=== PATIENT | female | born 1985 | race Caucasian/White ===

== ENCOUNTER 2019-07-22 03:58 | Emergency (ER) | payer BC ==
[2019-07-22 04:05] VITALS: RESP 18
[2019-07-22] MEDS ORDERED: SODIUM CHLORIDE 0.9% 1,000 ML IV STA (04:35)
[2019-07-22] MEDS ORDERED: DIAZEPAM 5 MG/ML 2 ML INJ IVP STA (04:35)
--- NOTE | 2019-07-22 04:42 | ED ---
Dizziness HPI - General Chief Complaint: Dizziness Stated Complaint: Dizziness Time Seen by Provider: 07/22/19 04:00 Source: patient Limitations: no limitations - History of Present Illness Initial Comments: The patient is a 34-year-old female presents the emergency department with reported vertiginous symptoms. She states over the past several days that she has had positional vertigo which has been waxing and waning. She recently had an upper respiratory infection. States that her nasal congestion has been improving. She has been taking Claritin. The vertigo is a recent development. Sates that it is worse and she sits or stands. No history of similar in the past. Denies any blunt head trauma. No headaches or visual changes. Denies any unilateral numbness or weakness. No speech difficulties or confusion. Denies any chest pain or shortness of breath. No blunt head trauma. Denies gradual onset. No family history of polycystic kidney disease or aneurysms. Also admits to presyncope. She denies any shortness of breath. No abdominal pain or changes in her bowel habits. States that she has been under an extreme amount of stress and feels very anxious. Denies concern for . There are no alleviating, precipitating or modifying factors - Related Data Home Medications Medication Instructions Recorded Confirmed Ibuprofen [Motrin Ib] 400 mg PO TID 11/23/18 07/22/19 Loratadine [Claritin] 10 mg PO DAILY 11/23/18 07/22/19 Multivitamin/Iron/Folic Acid 1 tab PO DAILY 11/23/18 07/22/19 [Centrum Adults Tablet] Previous Rx's Medication Instructions Recorded Meclizine [Antivert] 25 mg PO TID PRN #15 tab 07/22/19 Allergies Allergy/AdvReac Type Severity Reaction Status Date / Time No Known Allergies Allergy Verified 07/22/19 04:05 Review of Systems ROS Statement: Those systems with pertinent positive or pertinent negative responses have been documented in the HPI. ROS Other: All systems not noted in ROS Statement are negative. Past Medical History Past Medical History: No Reported History History of Any Multi-Drug Resistant Organisms: None Reported Past Surgical History: Section Past Psychological History: No Psychological Hx Reported Smoking Status: Never smoker Past Alcohol Use History: None Reported Past Drug Use History: None Reported General Exam Limitations: no limitations General appearance: alert, in no apparent distress Head exam: Present: atraumatic, normocephalic, normal inspection Eye exam: Present: normal appearance, PERRL, EOMI. Absent: scleral icterus, conjunctival injection, periorbital swelling ENT exam: Present: normal exam, mucous membranes moist Neck exam: Present: normal inspection. Absent: tenderness, meningismus, lymphadenopathy Respiratory exam: Present: normal lung sounds bilaterally. Absent: respiratory distress, wheezes, rales, rhonchi, stridor Cardiovascular Exam: Present: normal rhythm, tachycardia, normal heart sounds. Absent: systolic murmur, diastolic murmur, rubs, gallop, clicks GI/Abdominal exam: Present: soft, normal bowel sounds. Absent: distended, tenderness, guarding, rebound, rigid Extremities exam: Present: normal inspection, full ROM, normal capillary refill. Absent: tenderness, pedal edema, joint swelling, calf tenderness Back exam: Present: normal inspection Neurological exam: Present: alert, oriented X3, CN II-XII intact, other (negative pronator drift. no truncal ataxia. finger to nose and heel to andujar is symmetric bilaterally. ) Psychiatric exam: Present: normal affect, normal mood Skin exam: Present: warm, dry, intact, normal color. Absent: rash Course Vital Signs 07/22/19 07/22/19 07/22/19 04:00 04:37 06:09 Temperature 99.0 F Pulse Rate 133 H 115 H Pulse Rate [ 135 H Sitting] Pulse Rate [ 156 H Standing] Pulse Rate [ 129 H Supine] Respiratory 18 18 Rate Blood Pressure 147/106 126/82 Blood Pressure 145/92 [Sitting] Blood Pressure 128/88 [Standing] Blood Pressure 147/86 [Supine] O2 Sat by Pulse 98 98 Oximetry 07/22/19 07:23 Temperature 98 F Pulse Rate 94 Pulse Rate [ Sitting] Pulse Rate [ Standing] Pulse Rate [ Supine] Respiratory 18 Rate Blood Pressure 125/80 Blood Pressure [Sitting] Blood Pressure [Standing] Blood Pressure [Supine] O2 Sat by Pulse 98 Oximetry EKG Findings - EKG Comments: EKG Findings:: EKG demonstrates a sinus tachycardia with a ventricular rate of 131. PA interval 132. QRS E4. QTC of 448. No acute ST segment ablation depressions concerning for ischemic changes. No signs of Ktdpc-Mxjuehera-Lwhnl or Brugada syndrome Medical Decision Making - Medical Decision Making Upon arrival patient was placed into room 6. A thorough history and physical exam was performed. I discussed diagnosis, differential and treatment options. Laboratory studies were performed and were unremarkable. Orthostatics were negative. CT of the brain demonstrated no acute findings. The patient is markedly tachycardic. I did recommend treatment with Valium if this would help her anxiety and dizziness. Patient is refusing this medication. I did discuss treating her with meclizine for which the patient was extremely apprehensive stating that she doesn't like to take any medication however she finally agreed. I did add on a d-dimer because the patient's tachycardia. It is negative. UA shows rare bacteria. The patient is a symptomatically and therefore I will not treat it. I discuss the diagnosis, differential and treatment options. Reevaluation after the meclizine demonstrated that she had marked improvement in her symptoms. She feels comfortable being discharged home at this time. I did provide the patient with a prescription for meclizine. I instructed her that if she has new or worsening symptoms that she needs to return to the emergency department for neurology evaluation and MRI. The patient understood this. She was given written and verbal discharge instructions and discharged home in stable condition - Lab Data Result diagrams: 07/22/19 04:42 07/22/19 04:42 Lab Results 07/22/19 07/22/19 07/22/19 Range/Units 04:42 04:42 04:42 WBC 8.7 (3.8-10.6) k/uL RBC 5.28 (3.80-5.40) m/uL Hgb 15.9 (11.4-16.0) gm/dL Hct 48.1 H (34.0-46.0) % MCV 91.2 (80.0-100.0) fL MCH 30.1 (25.0-35.0) pg MCHC 33.0 (31.0-37.0) g/dL RDW 12.5 (11.5-15.5) % Plt Count 342 (150-450) k/uL Neutrophils % 77 % Lymphocytes % 15 % Monocytes % 5 % Eosinophils % 1 % Basophils % 0 % Neutrophils # 6.8 (1.3-7.7) k/uL Lymphocytes # 1.3 (1.0-4.8) k/uL Monocytes # 0.4 (0-1.0) k/uL Eosinophils # 0.1 (0-0.7) k/uL Basophils # 0.0 (0-0.2) k/uL D-Dimer (<0.60) mg/L FEU Sodium (137-145) mmol/L Potassium (3.5-5.1) mmol/L Chloride (98-107) mmol/L Carbon Dioxide (22-30) mmol/L Anion Gap mmol/L BUN (7-17) mg/dL Creatinine (0.52-1.04) mg/dL Est GFR (CKD-EPI)AfAm (>60 ml/min/1.73 sqM) Est GFR (CKD-EPI)NonAf (>60 ml/min/1.73 sqM) Glucose (74-99) mg/dL Calcium (8.4-10.2) mg/dL Total Bilirubin (0.2-1.3) mg/dL AST (14-36) U/L ALT (4-34) U/L Alkaline Phosphatase (38-126) U/L Troponin I (0.000-0.034) ng/mL Total Protein (6.3-8.2) g/dL Albumin (3.5-5.0) g/dL Urine Color Colorless Urine Appearance Cloudy H (Clear) Urine pH 6.5 (5.0-8.0) Ur Specific [place] 1.002 (1.001-1.035) Urine Protein Negative (Negative) Urine Glucose (UA) Negative (Negative) Urine Ketones Negative (Negative) Urine Blood Negative (Negative) Urine Nitrite Negative (Negative) Urine Bilirubin Negative (Negative) Urine Urobilinogen <2.0 (<2.0) mg/dL Ur Leukocyte Esterase Small H (Negative) Urine RBC <1 (0-5) /hpf Urine WBC 3 (0-5) /hpf Ur Squamous Epith Cells 4 (0-4) /hpf Urine Bacteria Rare H (None) /hpf Urine HCG, Qual Not Detected (Not Detectd) 07/22/19 07/22/19 07/22/19 Range/Units 04:42 04:42 04:47 WBC (3.8-10.6) k/uL RBC (3.80-5.40) m/uL Hgb (11.4-16.0) gm/dL Hct (34.0-46.0) % MCV (80.0-100.0) fL MCH (25.0-35.0) pg MCHC (31.0-37.0) g/dL RDW (11.5-15.5) % Plt Count (150-450) k/uL Neutrophils % % Lymphocytes % % Monocytes % % Eosinophils % % Basophils % % Neutrophils # (1.3-7.7) k/uL Lymphocytes # (1.0-4.8) k/uL Monocytes # (0-1.0) k/uL Eosinophils # (0-0.7) k/uL Basophils # (0-0.2) k/uL D-Dimer 0.43 (<0.60) mg/L FEU Sodium 139 (137-145) mmol/L Potassium 4.1 (3.5-5.1) mmol/L Chloride 105 (98-107) mmol/L Carbon Dioxide 24 (22-30) mmol/L Anion Gap 10 mmol/L BUN 13 (7-17) mg/dL Creatinine 0.76 (0.52-1.04) mg/dL Est GFR (CKD-EPI)AfAm >90 (>60 ml/min/1.73 sqM) Est GFR (CKD-EPI)NonAf >90 (>60 ml/min/1.73 sqM) Glucose 158 H (74-99) mg/dL Calcium 9.8 (8.4-10.2) mg/dL Total Bilirubin 0.2 (0.2-1.3) mg/dL AST 23 (14-36) U/L ALT 19 (4-34) U/L Alkaline Phosphatase 96 (38-126) U/L Troponin I <0.012 (0.000-0.034) ng/mL Total Protein 7.6 (6.3-8.2) g/dL Albumin 4.3 (3.5-5.0) g/dL Urine Color Urine Appearance (Clear) Urine pH (5.0-8.0) Ur Specific [place] (1.001-1.035) Urine Protein (Negative) Urine Glucose (UA) (Negative) Urine Ketones (Negative) Urine Blood (Negative) Urine Nitrite (Negative) Urine Bilirubin (Negative) Urine Urobilinogen (<2.0) mg/dL Ur Leukocyte Esterase (Negative) Urine RBC (0-5) /hpf Urine WBC (0-5) /hpf Ur Squamous Epith Cells (0-4) /hpf Urine Bacteria (None) /hpf Urine HCG, Qual (Not Detectd) Disposition Clinical Impression: Positional vertigo Disposition: HOME SELF-CARE Condition: Stable Instructions (If sedation given, give patient instructions): Dizziness (ED) Additional Instructions: Please follow-up with your primary care doctor in 2-4 days. Return to emergency room for any new or worsening symptoms Prescriptions: Meclizine [Antivert] 25 mg PO TID PRN #15 tab PRN Reason: Vertigo Is patient prescribed a controlled substance at d/c from ED?: No Referrals: None,Stated [Primary Care Provider] - 1-2 days Time of Disposition: 07:09
[2019-07-22 05:01] LABS: Basophils % (A) 0 %; Eosinophils # (A) 0.1 k/uL (0-0.7); Eosinophils % (A) 1 %; HCT 48.1 % (34.0-46.0); HGB 15.9 gm/dL (11.4-16.0); Lymphocytes # (A) 1.3 k/uL (1.0-4.8); Lymphocytes % (A) 15 %; MCH 30.1 pg (25.0-35.0); MCV 91.2 fL (80.0-100.0); Mean Platelet Volume 6.7; Monocytes # (A) 0.4 k/uL (0-1.0); Monocytes % (A) 5 %; Neutrophils # (A) 6.8 k/uL (1.3-7.7); Neutrophils % (A) 77 %; Platelet Count 342 k/uL (150-450); RBC 5.28 m/uL (3.80-5.40); RDW 12.5 % (11.5-15.5); WBC 8.7 k/uL (3.8-10.6)
[2019-07-22 05:06] LABS: Appearance,Urine Cloudy (Clear); Bacteria,Urine Rare /hpf; Bilirubin,Urine Negative (Negative); Blood,Urine Negative (Negative); Color,Urine Colorless; Glucose,Urine (UA) Negative (Negative); Ketones,Urine Negative (Negative); Leukocyte Esterase,Urine Small (Negative); Nitrite,Urine Negative (Negative); PH, Urine 6.5 (5.0-8.0); Protein,Urine Negative (Negative); RBC,Urine <1 /hpf (0-5); Specific Gravity,Urine 1.002 (1.001-1.035); Squamous Epithelial Cell,Urine 4 /hpf (0-4); Urobilinogen,Urine <2.0 mg/dL (<2.0); WBC,Urine 3 /hpf (0-5)
--- NOTE | 2019-07-22 05:06 | XR ---
EXAMINATION TYPE: XR chest 2V DATE OF EXAM: 07/22/2019 COMPARISON: 11/23/2018 HISTORY: Sore throat TECHNIQUE: FINDINGS: Heart and mediastinum are normal. Lungs are clear. Diaphragm is normal. Bony thorax is inta ct. There are chest leads. IMPRESSION: Normal chest. No change.
[2019-07-22 05:08] LABS: ALT 19 U/L (4-34); AST 23 U/L (14-36); African American GFR (CKD) >90 (>60 ml/min/1.73 sqM); Albumin 4.3 g/dL (3.5-5.0); Alkaline Phosphatase 96 U/L (38-126); Anion Gap 10 mmol/L; Blood Urea Nitrogen 13 mg/dL (7-17); Calcium 9.8 mg/dL (8.4-10.2); Carbon Dioxide 24 mmol/L (22-30); Chloride 105 mmol/L (98-107); Glucose 158 mg/dL (74-99); Non-African American GFR(CKD) >90 (>60 ml/min/1.73 sqM); Potassium 4.1 mmol/L (3.5-5.1); Sodium 139 mmol/L (137-145); Total Bilirubin 0.2 mg/dL (0.2-1.3); Total Protein 7.6 g/dL (6.3-8.2)
--- NOTE | 2019-07-22 05:40 | CT ---
EXAMINATION TYPE: CT brain wo con DATE OF EXAM: 07/22/2019 COMPARISON: None HISTORY: Dizziness CT DLP: 1127.4 mGycm Automated exposure control for dose reduction was used. The ventricles have normal size. There is no mass effect nor midline shift. There is no sign of intra cranial hemorrhage. Calvarium is intact. There is no evidence of cerebral edema. IMPRESSION: Negative CT scan of the brain.
[2019-07-22] MEDS ORDERED: MECLIZINE 12.5 MG TAB PO STA (05:51)
[2019-07-22 07:26] VITALS: BP 125/80; PULSE 94; TEMP 98
== END 2019-07-22 07:23 | disposition home or self-care (01) ==
LOC: EC 03:58
DX: R42 Dizziness and giddiness (principal); R00.0 Tachycardia, unspecified; F41.9 Anxiety disorder, unspecified; Z53.20 Procedure and treatment not carried out because of patient's decision for unspecified reasons
CPT/HCPCS: 36415; 70450; 71046; 80053; 81001; 81025; 84484; 85025; 85379; 93005; 96360; 96361; 99285

== ENCOUNTER 2024-06-06 07:51 | Inpatient (IN) | payer BC, OTHER ==
[2024-05-27 10:18] VITALS: BMI 39.6
[2024-06-06] MEDS ORDERED: OXYTOCIN 10 UNIT/ML 1 ML VIAL IM PRN (08:23)
[2024-06-06] MEDS ORDERED: miSOPROStoL 200 MCG TAB PO PRN (08:23)
[2024-06-06] MEDS ORDERED: TRANEXAMIC 1,000 MG/100ML-NACL 1,000 MG in EMPTY BAG 1 BAG IV PRN (08:23)
[2024-06-06] MEDS ORDERED: CARBOPROST TROMETHAMINE 250 MCG/ML 1 ML AMP IM PRN (08:23)
[2024-06-06] MEDS ORDERED: METHYLERGONOVINE 0.2 MG/ML 1 ML AMP IM PRN (08:23)
[2024-06-06] MEDS ORDERED: OXYTOCIN 30 UNITS/500 ML NS 30 UNIT in SALINE 1 500ML.BAG IV SCH ×2 (08:30→11:00)
[2024-06-06] MEDS: CITRIC ACID-SODIUM CITRATE 15 ML CUP PO ONE (08:39)
[2024-06-06] MEDS: LACTATED RINGERS 1,000 ML IV SCH ×2 (08:39→14:21)
[2024-06-06 08:46] LABS: Anisocytosis Slight; Basophils % (A) 0 %; Eosinophils # (A) 0.1 k/uL (0-0.7); Eosinophils % (A) 1 %; HCT 31.9 % (34.0-46.0); HGB 10.1 gm/dL (11.4-16.0); Hypochromasia Marked; Lymphocytes # (A) 1.2 k/uL (1.0-4.8); Lymphocytes % (A) 15 %; MCH 22.5 pg (25.0-35.0); MCHC 31.7 g/dL (31.0-37.0); MCV 71.2 fL (80.0-100.0); Mean Platelet Volume 7.4; Microcytosis Marked; Monocytes # (A) 0.5 k/uL (0-1.0); Monocytes % (A) 6 %; Neutrophils # (A) 6.1 k/uL (1.3-7.7); Neutrophils % (A) 76 %; Platelet Count 330 k/uL (150-450); Poikilocytosis Slight; RBC 4.49 m/uL (3.80-5.40); RDW 18.2 % (11.5-15.5)
[2024-06-06] MEDS ORDERED: fentaNYL (PF) 50 MCG/ML 2 ML AMP ONE (10:06)
[2024-06-06] MEDS ORDERED: MORPHINE SULFATE (PF) 0.3 MG/0.3 ML SYR ONE (10:06)
[2024-06-06] MEDS ORDERED: NALBUPHINE (ANES) 10 MG/ML - 1 ML AMP ONE (10:06)
[2024-06-06] MEDS ORDERED: KETOROLAC 30 MG/ML 1 ML VIAL ONE (10:06)
[2024-06-06] MEDS ORDERED: ONDANSETRON 4 MG/2 ML VIAL ONE (10:06)
[2024-06-06] MEDS ORDERED: diphenhydrAMINE 25 MG CAP PO PRN (10:55)
[2024-06-06] MEDS ORDERED: METOCLOPRAMIDE 5 MG/ML 2 ML VIAL IVP PRN (10:55)
[2024-06-06] MEDS ORDERED: ONDANSETRON 4 MG/2 ML VIAL IVP PRN (10:55)
[2024-06-06] MEDS ORDERED: ZOLPIDEM 5 MG TAB PO PRN (10:55)
[2024-06-06] MEDS ORDERED: NALOXONE 0.4 MG/ML 1 ML VIAL IV PRN (10:55)
[2024-06-06] MEDS ORDERED: LANOLIN CREAM 1 GM TUBE TOPICAL PRN (10:55)
[2024-06-06] MEDS ORDERED: diphenhydrAMINE 50 MG CAP PO PRN (10:55)
[2024-06-06] MEDS ORDERED: diphenhydrAMINE 50 MG/ML 1 ML VIAL IVP PRN ×2 (10:55)
[2024-06-06] MEDS ORDERED: SIMETHICONE 80 MG CHEWABLE PO PRN (10:55)
--- NOTE | 2024-06-06 11:20 | P.HPOB ---
History of Present Illness H&P Date: 06/06/24 Chief Complaint: repeat low transverse 39-year-old G4, P3 presents at 39 weeks and 3 days for repeat low-transverse C- section. She has had some polyhydramnios with negative TORCH titers in this . Review of Systems All systems: negative Constitutional: Denies chills, Denies fever Eyes: denies blurred vision, denies pain Ears, nose, mouth and throat: Denies headache, Denies sore throat Cardiovascular: Denies chest pain, Denies shortness of breath Respiratory: Denies cough Gastrointestinal: Denies abdominal pain, Denies diarrhea, Denies nausea, Denies vomiting Genitourinary: Denies dysuria, Denies hematuria Musculoskeletal: Denies myalgias Integumentary: Denies pruritus, Denies rash Neurological: Denies numbness, Denies weakness Psychiatric: Denies anxiety, Denies depression Endocrine: Denies fatigue, Denies weight change Past Medical History Past Medical History: GERD/Reflux Additional Past Medical History / Comment(s): 2 Vaginal deliveries and 1 C- section History of Any Multi-Drug Resistant Organisms: None Reported Past Surgical History: Section Additional Past Surgical History / Comment(s): x1 Past Anesthesia/Blood Transfusion Reactions: No Reported Reaction Additional Past Anesthesia/Blood Transfusion Reaction / Comment(s): Has never had anesthesia only spinal for previous . No hx of blood transfusion to date. Past Psychological History: No Psychological Hx Reported Smoking Status: Never smoker Past Alcohol Use History: None Reported Past Drug Use History: None Reported - Past Family History Mother Family Medical History: Cancer Additional Family Medical History / Comment(s): breast cancer Medications and Allergies Home Medications Medication Instructions Recorded Confirmed Type Aspirin EC [Ecotrin Low Dose] 81 mg PO DAILY 05/27/24 06/06/24 History Vitamin(Unknown Dose) 1 dose PO QAM 05/27/24 06/06/24 History Allergies Allergy/AdvReac Type Severity Reaction Status Date / Time No Known Allergies Allergy Verified 06/06/24 08:22 Exam Osteopathic Statement: *. No significant issues noted on an osteopathic structural exam other than those noted in the History and Physical/Consult. Vital Signs Temp Pulse Resp BP Pulse Ox 06/06/24 08:21 98.5 F 99 18 135/76 99 Intake and Output 06/05/24 06/06/24 06/06/24 22:59 06:59 14:59 Other: Weight 98.43 kg Heart: Regular rate and rhythm Lungs: Clear to auscultation bilaterally Abdomen: Soft, nontender Extremities: Negative Homans sign Results Result Diagrams: 06/06/24 08:30 Abnormal Lab Results - Last 24 Hours (Table) 06/06/24 Range/Units 08:30 Hgb 10.1 L (11.4-16.0) gm/dL Hct 31.9 L (34.0-46.0) % MCV 71.2 L (80.0-100.0) fL MCH 22.5 L (25.0-35.0) pg RDW 18.2 H (11.5-15.5) % Assessment and Plan (1) Previous section Current Visit: Yes Status: Acute Code(s): Z98.891 - HISTORY OF UTERINE SCAR FROM PREVIOUS SURGERY SNOMED Code(s): 296659448 (2) 39 weeks gestation of Current Visit: Yes Status: Acute Code(s): Z3A.39 - 39 WEEKS GESTATION OF SNOMED Code(s): 57179548 (3) Polyhydramnios Current Visit: Yes Status: Acute Code(s): O40.9XX0 - POLYHYDRAMNIOS, UNSP TRIMESTER, NOT APPLICABLE OR UNSP SNOMED Code(s): 77757225 (4) Advanced maternal age (AMA) in Current Visit: Yes Status: Acute Code(s): ISU2431 - SNOMED Code(s): 573615323 Plan: 1. repeat low transverse
--- NOTE | 2024-06-06 11:23 | P.OP ---
Date of Procedure: 06/06/24 Preoperative Diagnosis: 1. previous 2. 39 weeks gestation 3. advanced maternal age Postoperative Diagnosis: same Procedure(s) Performed: repeat low transverse Anesthesia: spinal Surgeon: Sallie Ross Assembly Instructions Writer #1: Gia Hurtado Estimated Blood Loss (ml): 766 IV fluids (ml): 1,000 Urine output (ml): 250 Pathology: none sent Condition: stable Disposition: floor Operative Findings: viable female 9,9, weight 7#10oz Description of Procedure: Patient was taken to the operating room where spinal anesthesia was found be adequate. She was prepped and draped in normal sterile fashion in dorsal supine position with a leftward tilt. Pfannenstiel skin incision was made the scalpel and carried through to the underlying layer of fascia with the scalpel. Fascia was incised in midline and carried bilaterally with the Landis scissors. The superior aspect of the fascial incision was grasped with Miracle clamps elevated and the underlying rectus muscles dissected off with the Landis's. Attention was then turned to inferior aspect of same incision which in a similar fashion was grasped tented up and the underlying rectus muscles dissected off with the Landis's. The rectus muscles were the midline and the peritoneum was identified tented up and entered sharply with the scalpel. The incision was extended superiorly and inferiorly with good visualization of the bladder. The bladder blade was inserted. A low transverse incision was then made on the uterus with the scalpel. This was carried bilaterally and digital manner. 's head delivered atraumatically, nose and mouth bulb suctioned, cord clamped and cut, infant handed off to waiting nurses. Apgars 9,9, weight 7 lbs. 10 oz. Placenta delivered manually, intact with three-vessel cord. The uterus is exteriorized and cleared of all clots and debris. The uterine incision was closed with 0 Vicryl in a running locked fashion. Second layer of the same sutures used in imbricating fashion to obtain excellent hemostasis. Bladder flap was then reapproximated using 2-0 Vicryl in a running fashion. Both ovaries and tubes appeared normal. The uterus was placed back into the abdomen. The muscles were reapproximated using 2-0 Vicryl in interrupted fashion. The fascia was reapproximated using 0 Vicryl in a running fashion. The subcutaneous tissues closed with 3-0 Vicryl running fashion. The skin was closed stanley. Patient tolerated the procedure well, sponge and instrument counts were correct times 2 and she was taken to the recovery room in stable condition.
[2024-06-06 12:33] LABS: Glucose,Whole Blood 98 mg/dL (70-110)
[2024-06-06] MEDS: ACETAMINOPHEN TAB 500 MG TAB PO SCH (13:51)
[2024-06-06] MEDS: KETOROLAC 15 MG/ML 1 ML VIAL IVP SCH (16:55)
[2024-06-06] MEDS: SENNOSIDES-DOCUSATE SODIUM 1 EACH TAB PO SCH (23:58)
[2024-06-07] MEDS: IBUPROFEN 800 MG TAB PO SCH (05:20)
[2024-06-07 07:29] LABS: Anisocytosis Slight; Basophils % (A) 0 %; Eosinophils # (A) 0.1 k/uL (0-0.7); Eosinophils % (A) 1 %; HCT 28.7 % (34.0-46.0); Hypochromasia Marked; Lymphocytes # (A) 1.2 k/uL (1.0-4.8); Lymphocytes % (A) 9 %; MCH 22.8 pg (25.0-35.0); MCHC 31.5 g/dL (31.0-37.0); MCV 72.3 fL (80.0-100.0); Mean Platelet Volume 8.1; Microcytosis Moderate; Monocytes # (A) 0.7 k/uL (0-1.0); Monocytes % (A) 5 %; Neutrophils # (A) 11.3 k/uL (1.3-7.7); Neutrophils % (A) 84 %; Platelet Count 270 k/uL (150-450); Poikilocytosis Slight; RBC 3.96 m/uL (3.80-5.40); RDW 18.4 % (11.5-15.5); WBC 13.4 k/uL (3.8-10.6)
--- NOTE | 2024-06-07 08:02 | P.PNOBGPC ---
Subjective - Subjective Principal diagnosis: S/P RLTCS POD #1 Interval history: Patient seen and examined. Denies nausea, vomiting, chest pain, shortness of breath and calf pain. Patient reports: Reports appetite normal, Reports voiding normally, Reports pain well controlled, Reports ambulating normally : doing well Objective - Vital Signs Latest vital signs: Vital Signs Temp Pulse Resp BP Pulse Ox 06/07/24 03:18 110 H 16 06/07/24 03:17 97.9 F 110 H 16 127/82 96 06/06/24 20:00 98.0 F 94 16 127/76 99 06/06/24 16:00 97.8 F 96 18 135/73 97 06/06/24 13:00 89 16 144/75 99 06/06/24 12:45 86 16 137/82 97 06/06/24 12:30 86 16 126/62 99 06/06/24 12:15 93 16 119/68 98 06/06/24 12:00 98.1 F 87 18 116/66 98 06/06/24 11:45 82 16 110/64 98 06/06/24 11:30 91 16 111/73 98 06/06/24 11:15 87 16 112/72 97 06/06/24 11:00 95 16 104/65 97 06/06/24 08:21 98.5 F 99 18 135/76 99 Intake and Output 06/06/24 06/07/24 06/07/24 22:59 06:59 14:59 Output Total 700 1100 Balance -700 -1100 Output: Urine 700 1100 Uretheral (Ace) 250 Other: Voiding Method Indwelling Catheter # Voids 1 - Exam Lungs: bilateral: normal Chest: Normal S1, Normal S2 Extremities: Present: normal Abdomen: Present: normal appearance, soft. Absent: distention, tenderness Incision: Present: normal, dry, intact Uterus: Present: normal, firm - Labs Labs: Abnormal Lab Results - Last 24 Hours (Table) 06/06/24 06/07/24 Range/Units 08:30 07:10 WBC 13.4 H (3.8-10.6) k/uL Hgb 10.1 L 9.0 L (11.4-16.0) gm/dL Hct 31.9 L 28.7 L (34.0-46.0) % MCV 71.2 L 72.3 L (80.0-100.0) fL MCH 22.5 L 22.8 L (25.0-35.0) pg RDW 18.2 H 18.4 H (11.5-15.5) % Neutrophils # 11.3 H (1.3-7.7) k/uL Assessment and Plan (1) Previous section Current Visit: Yes Status: Resolved Code(s): Z98.891 - HISTORY OF UTERINE SCAR FROM PREVIOUS SURGERY SNOMED Code(s): 703313182 (2) 39 weeks gestation of Current Visit: Yes Status: Resolved Code(s): Z3A.39 - 39 WEEKS GESTATION OF SNOMED Code(s): 61042275 (3) Polyhydramnios Current Visit: Yes Status: Resolved Code(s): O40.9XX0 - POLYHYDRAMNIOS, UNSP TRIMESTER, NOT APPLICABLE OR UNSP SNOMED Code(s): 40069900 (4) Advanced maternal age (AMA) in Current Visit: Yes Status: Resolved Code(s): LRV0266 - SNOMED Code(s): 437734579 (5) Status post repeat low transverse section Current Visit: Yes Status: Acute Code(s): Z98.891 - HISTORY OF UTERINE SCAR FROM PREVIOUS SURGERY SNOMED Code(s): 788866174 Plan: 1. Increase ambulation 2. Regular diet
--- NOTE | 2024-06-07 13:29 | P.PN ---
Progress Note - Text Progress Note Date: 06/07/24 Postoperative day 1 status post section under spinal anesthesia, and intrathecal morphine given for postoperative analgesia, patient doing well, there is no anesthesia related complications, Patient had no headache, vital signs stable , Assessment and plan= postop day 1 status post , doing well there is no anesthesia related complication.
[2024-06-07] MEDS ORDERED: IBUPROFEN 800 MG TAB PO SCH (16:00)
[2024-06-08 01:39] VITALS: RESP 16
--- NOTE | 2024-06-08 08:11 | P.DS ---
Providers Date of admission: 06/06/24 07:51 Expected date of discharge: 06/08/24 Attending physician: Sallie Ross Primary care physician: Stated None - Discharge Diagnosis(es) (1) Previous section Current Visit: Yes Status: Resolved (2) 39 weeks gestation of Current Visit: Yes Status: Resolved (3) Polyhydramnios Current Visit: Yes Status: Resolved (4) Advanced maternal age (AMA) in Current Visit: Yes Status: Resolved (5) Status post repeat low transverse section Current Visit: Yes Status: Acute Hospital Course: Presented for repeat low-transverse . She underwent procedure without complication. She denies nausea, vomiting, chest pain, shortness of breath or calf pain. Her incision is clean, dry, intact. There is some ecchymosis on the right side of the incision. No drainage though. Patient will be discharged home postoperative day #2 in stable condition to follow-up with me in 2 weeks. Plan - Discharge Summary Discharge Rx Participant: No New Discharge Prescriptions: No Action Vitamin(Unknown Dose) 1 dose PO QAM Aspirin EC [Ecotrin Low Dose] 81 mg PO DAILY Discharge Medication List Aspirin EC [Ecotrin Low Dose] 81 mg PO DAILY 05/27/24 [History] Vitamin(Unknown Dose) 1 dose PO QAM 05/27/24 [History] Follow up Appointment(s)/Referral(s): Sallie Ross DO [Doctor of Osteopathic Medicine] - 06/20/24 2:15 pm (Post Appointment 07-19-2024 at 11:30am) Discharge Disposition: HOME SELF-CARE
[2024-06-08 08:21] VITALS: BP 138/83; PULSE 92; TEMP 98.4
== END 2024-06-08 12:20 | disposition home or self-care (01) | DRG 788 ==
LOC: 4FBP 07:51
PROVIDERS: ADMIT Obstetrics & Gynecology; ATTEND Obstetrics & Gynecology
PROC: 10D00Z1 Extraction of Products of Conception, Low, Open Approach (ICD-10-PCS; principal; 2024-06-06 10:00)
DX: O34.211 Maternal care for low transverse scar from previous cesarean delivery (principal); O40.3XX0 Polyhydramnios, third trimester, not applicable or unspecified; Z37.0 Single live birth; Z3A.39 39 weeks gestation of pregnancy; Z79.82 Long term (current) use of aspirin
CPT/HCPCS: 85025; 86850; 86900; 86901